=== PATIENT | female | born 1930 | race American Indian/Alaskan Native ===

== ENCOUNTER 2017-12-30 18:55 | Emergency (ER) | payer MEDICARE ==
--- NOTE | 2017-12-30 20:54 | Emergency Department Report ---
ED General Adult HPI - General Chief complaint: Pain General Stated complaint: PAIN ALL OVER Time Seen by Provider: 12/30/17 20:20 Source: patient, family, EMS Mode of arrival: Stretcher Limitations: Physical Limitation - History of Present Illness Initial comments: pt. was sent from the [place] because of pain on the left side of the neck and also left sided headache.no fever or neck stiffness. she does have a histiory of falls and no prior fall reported . she also as a hsitory of cva MD Complaint: right sided headache and neck pain -: Gradual Location: head, neck Radiation: non-radiation Severity scale (0 -10): 4 Quality: aching Consistency: constant Improves with: none Worsens with: none Treatments Prior to Arrival: none - Related Data Home Medications Medication Instructions Recorded Confirmed Last Taken Stool Softener Tablet 0 mg FEEDTUBE DAILY PRN 12/30/17 12/30/17 Unknown Previous Rx's Medication Instructions Recorded Last Taken Type Cyclobenzaprine HCl [Flexeril 5 MG 5 mg PO TID #30 tab 12/30/17 Unknown Rx TAB] Allergies Allergy/AdvReac Type Severity Reaction Status Date / Time No Known Allergies Allergy Unverified 12/30/17 20:11 ED Review of Systems ROS: Stated complaint: PAIN ALL OVER Other details as noted in HPI Comment: All other systems reviewed and negative ED Past Medical Hx - Past Medical History Hx CVA: Yes - Social History Smoking Status: Never Smoker Substance Use Type: None - Medications Home Medications: Home Medications Medication Instructions Recorded Confirmed Last Taken Type Cyclobenzaprine HCl [Flexeril 5 MG 5 mg PO TID #30 tab 12/30/17 Unknown Rx TAB] Stool Softener Tablet 0 mg FEEDTUBE DAILY PRN 12/30/17 12/30/17 Unknown History ED Physical Exam - General Limitations: Physical Limitation General appearance: alert, in no apparent distress - Head Head exam: Present: atraumatic, normocephalic - Eye Eye exam: Present: normal appearance - ENT ENT exam: Present: mucous membranes moist - Neck Neck exam: Present: normal inspection, tenderness (tp of the left trapezius) - Respiratory Respiratory exam: Present: normal lung sounds bilaterally. Absent: respiratory distress - Cardiovascular Cardiovascular Exam: Present: regular rate, normal rhythm. Absent: systolic murmur, diastolic murmur, rubs, gallop - GI/Abdominal GI/Abdominal exam: Present: soft, normal bowel sounds. Absent: distended - Rectal Rectal exam: Present: deferred - Extremities Exam Extremities exam: Present: normal inspection - Back Exam Back exam: Present: normal inspection - Neurological Exam Neurological exam: Present: alert, oriented X3, other (power is 5/5 globally) - Psychiatric Psychiatric exam: Present: normal affect, normal mood - Skin Skin exam: Present: warm, dry, intact, normal color. Absent: rash ED Course Vital Signs 12/30/17 12/30/17 12/30/17 19:51 20:00 20:04 Temperature 97.7 F Pulse Rate 70 69 Respiratory 14 13 14 Rate Blood Pressure 131/68 Blood Pressure 139/66 [Left] O2 Sat by Pulse 97 97 98 Oximetry 12/30/17 12/30/17 12/30/17 20:16 20:30 20:46 Temperature Pulse Rate 72 79 71 Respiratory 13 Rate Blood Pressure 131/68 134/78 134/78 Blood Pressure [Left] O2 Sat by Pulse 98 98 99 Oximetry 12/30/17 12/30/17 21:00 21:36 Temperature Pulse Rate 77 Respiratory 14 Rate Blood Pressure 134/78 126/88 Blood Pressure [Left] O2 Sat by Pulse 80 L Oximetry ED Medical Decision Making - EKG Data -: EKG Interpreted by Me EKG shows normal: sinus rhythm (rate of 69), axis (normal. RBBB), intervals ( interval), QRS complexes (normal), ST-T waves (non specific) - Radiology Data Radiology results: report reviewed - Medical Decision Making i think the patient headache is refered from the neck. her oxygen level is 100% on room air Critical care attestation.: If time is entered above; I have spent that time in minutes in the direct care of this critically ill patient, excluding procedure time. ED Disposition Clinical Impression: Neck muscle spasm, Headache Disposition: [id number]/TX-[id number] ANOTHER TYPE HLTHCARE Is pt being admited?: No Does the pt Need Aspirin: No Condition: Stable Instructions: Muscle Spasm (ED) Prescriptions: Cyclobenzaprine HCl [Flexeril 5 MG TAB] 5 mg PO TID #30 tab Referrals: LADI GODINEZ MD [Primary Care Provider] - 3-5 Days Time of Disposition: 23:10 Print Language: DANISH
--- NOTE | 2017-12-30 22:12 | Cat Scan Report ---
FINAL REPORT EXAM: CT HEAD/BRAIN WO CON HISTORY: headache TECHNIQUE: Standard unenhanced CT of the head at 5.0 millimeter axial increments. PRIORS: None. FINDINGS: The ventricular system is normal in size and configuration. Extensive low-density in the periventricular white matter is seen. There also remote infarct in the medial aspect of the left occipital lobe and a remote lacunar infarct in the right thalamus. There is no evidence for mass lesion, mass effect, midline shift, acute intracranial hemorrhage, or acute ischemia/ infarction. No evidence for acute skull fracture is seen. No abnormality in the overlying scalp soft tissues is seen. Visualized paranasal sinuses are clear. IMPRESSION: Small-vessel ischemic changes and several small remote infarcts.. No acute intracranial process noted.
--- NOTE | 2017-12-30 22:45 | Cat Scan Report ---
FINAL REPORT EXAM: CT CERVICAL SPINE WO CON HISTORY: neck pain TECHNIQUE: Standard CT cervical spine obtained at 1.25 mm axial increments. Coronal and sagittal reconstruction was also performed. PRIORS: None. FINDINGS: The vertebral bodies are intact. There is no evidence for acute fracture. There is no evidence for paravertebral soft tissue swelling. Alignment is maintained. Degenerative disc changes from C2 through C7 are noted with spurs anteriorly and posteriorly. There is also severe degenerative change at C1-C2 interface involving the left lateral mass. There is a small ovoid lucent subchondral cyst in the dens which suggests significant degenerative change at the atlantoaxial joint anteriorly. IMPRESSION: No acute bony abnormality of the cervical spine. 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 Findings are severe at the left side of the C1-C2 joint involving the left lateral mass
[2017-12-30 23:51] VITALS: BP 117/84
== END 2017-12-31 04:36 | disposition other institution (70) ==
LOC: ED 18:55
DX: M62.838 Other muscle spasm (principal); R51 Headache
CPT/HCPCS: 70450; 72125; 93005; 93010